=== PATIENT | female | born 1985 | race African-American/Black ===

== ENCOUNTER 2018-04-20 16:07 | Emergency (ER) | payer MEDICAID ==
[~2018-04-20] VITALS: Ht 167.6 cm; Wt 144.0 kg
[~2018-04-20 16:07] MED LIST: FOLI-43 PO; HYDR-523 PO
[2018-04-20 16:28] VITALS: BP 126/72
== END 2018-04-21 00:29 | disposition left against medical advice (07) ==
LOC: ER 16:07
DX: Z53.21 Procedure and treatment not carried out due to patient leaving prior to being seen by health care provider (principal)

== ENCOUNTER 2019-04-27 10:20 | Emergency (ER) | payer MEDICAID ==
[~2019-04-27] VITALS: Ht 177.8 cm; Wt 97.0 kg
[2019-04-27 12:16] VITALS: BP 103/60
== END 2019-04-27 12:17 | disposition home or self-care (01) ==
LOC: ER 10:20 → EEVIPCON 10:20 → ER 12:17
DX: R05 Cough (principal); R50.9 Fever, unspecified; R06.02 Shortness of breath; R03.0 Elevated blood-pressure reading, without diagnosis of hypertension
CPT/HCPCS: 71045; 99283

== ENCOUNTER 2022-03-05 09:26 | Emergency (ER) | payer MEDICAID, OTHER ==
[~2022-03-05] VITALS: Ht 167.6 cm; Wt 153.0 kg
[2022-03-05 09:28] VITALS: BP 153/80
[2022-03-05 12:49] LABS: BASOPHILS % 0.9 % (0.0-2.0); EOSINOPHILS % 1.1 % (0.0-5.0); HEMATOCRIT. 39.7 % (36.0-48.0); HEMOGLOBIN. 13.3 g/dL (12.0-16.0); MEAN CORPUSCULAR HEMOGLOBIN 28.7 pg (28.0-32.0); MEAN CORPUSCULAR VOLUME 85.6 fL (81.0-99.0); MONOCYTES % 8.3 % (2.0-8.0); NEUTROPHILS % 47.7 % (40.0-76.0); PLATELET 301 x1000/uL (130-400); RED BLOOD CELL COUNT 4.64 mill/uL (4.2-5.4); RED CELL DISTRIBUTION WIDTH 14.4 % (11.6-14.6)
[2022-03-05 12:56] LABS: CHLORIDE 110 mEq/L (98-107)
[2022-03-05 13:20] LABS: HCG SCREEN NEGATIVE
[2022-03-05] MEDS ORDERED: IBUPROFEN 600MG TABLET PO ONE (13:30)
[2022-03-05 13:31] LABS: PARTIAL THROMBOPLASTIN TIME 25.1 sec (23.4-31.0); PROTHROMBIN TIME 10.8 sec (9.6-11.0)
[2022-03-05] MEDS ORDERED: MORPHINE SULFATE 4 MG/ML CPJ (NOT FOR IM USE) IV ONE (14:15)
[2022-03-05] MEDS ORDERED: METHOCARBAMOL 500MG TABLET PO ONE (14:15)
[2022-03-05] MEDS ORDERED: IOHEXOL-350 100 ML BOTTLE ONE (16:05)
== END 2022-03-05 17:00 | disposition home or self-care (01) ==
LOC: ER 09:26
DX: R07.89 Other chest pain (principal)
CPT/HCPCS: 36415; 71045; 71275; 80053; 81025; 83880; 84484; 84703; 85025; 85379; 85610; 85730; 93005; 96374; 99285; J2270; Q9967